=== PATIENT | female | born 1965 | race Caucasian/White ===

== ENCOUNTER 2020-10-06 05:44 | Day surgery (SDC) | payer MEDICAID ==
[2020-09-30 12:47] LABS: COVID AG,FIA SOURCE NASOPHARYNGEAL
[~2020-10-06] VITALS: Ht 162.6 cm; Wt 67.2 kg
[~2020-10-06 05:44] MED LIST: ACET-2247 PO; ASPI-1450 PO; CYCLOPENTOLATE HCL 1% 2 ML OPHTHALMIC SOLUTION ONE; EMPA10TA PO; IBUP-2070 PO; KETOROLAC TROMETHAMINE 0.5% 5 ML OPHTHALMIC SOLUTION ONE; LISI-893 PO; METH-386 PO; MOXIFLOXACIN HCL 0.5% 3 ML OPHTHALMIC SOLUTION ONE; NAPR-1193 PO; PHENYLEPHRINE HCL 2.5% 2 ML OPHTHALMIC SOLUTION ONE; RINGERS SOLUTION,LACTATED 500 ML IV ONE; TETRACAINE HCL/PF 0.5% 4 ML OPHTHALMIC SOLUTION ONE; TROPICAMIDE 1% 2 ML OPHTHALMIC SOLUTION ONE
[2020-10-06] MEDS ORDERED: POVIDONE-IODINE 10% 15 ML SOLUTION UD TP ONE (05:45)
[2020-10-06] MEDS ORDERED: BALANCED SALT 15 ML OPHTHALMIC IRRIG.SOLN OU ONE (05:45)
[2020-10-06] MEDS ORDERED: FentaNYL CITRATE PF 100 MCG/2 ML VIAL IVP ONE (05:45)
[2020-10-06] MEDS ORDERED: TETRACAINE HCL/PF 0.5% 4 ML OPHTHALMIC SOLUTION OU ONE (05:45)
[2020-10-06] MEDS ORDERED: LIDOCAINE/PF 1% 2 ML VIAL IV ONE (05:45)
[2020-10-06] MEDS ORDERED: EPINEPHrine 1:1,000 [1 MG/ML] AMP SQ ONE (05:45)
[2020-10-06] MEDS ORDERED: PrednisoLONE ACETATE 1% 5 ML OPHTHALMIC SUSPENSION OU ONE (05:45)
[2020-10-06] MEDS ORDERED: MIDAZOLAM HCL 2 MG/2 ML VIAL IVP ONE (05:45)
[2020-10-06] MEDS ORDERED: HYALURONATE SOD 8.5MG/0.85ML 10 MG/ML SYRINGE IO ONE (05:45)
[2020-10-06] MEDS: TETRACAINE HCL/PF 0.5% 4 ML OPHTHALMIC SOLUTION OD SCH ×3 (06:25→06:36)
[2020-10-06] MEDS: TROPICAMIDE 1% 2 ML OPHTHALMIC SOLUTION OD SCH ×3 (06:26→06:36)
[2020-10-06] MEDS: KETOROLAC TROMETHAMINE 0.5% 5 ML OPHTHALMIC SOLUTION OD SCH ×3 (06:26→06:37)
[2020-10-06] MEDS: CYCLOPENTOLATE HCL 1% 2 ML OPHTHALMIC SOLUTION OD SCH ×3 (06:26→06:36)
[2020-10-06] MEDS: PHENYLEPHRINE HCL 2.5% 2 ML OPHTHALMIC SOLUTION OD SCH ×3 (06:26→06:36)
[2020-10-06] MEDS: MOXIFLOXACIN HCL 0.5% 3 ML OPHTHALMIC SOLUTION OD SCH ×3 (06:27→06:37)
[2020-10-06 06:58] LABS: GLUCOMETER DEV NAME(LOC) SDS.; GLUCOSE,POINT OF CARE 136 MG/DL (70-110)
== END 2020-10-06 08:00 | disposition home or self-care (01) ==
LOC: SURGERY 05:44
PROVIDERS: ATTEND Ophthalmology
DX: E11.36 Type 2 diabetes mellitus with diabetic cataract (principal); H25.11 Age-related nuclear cataract, right eye; E66.3 Overweight; I10 Essential (primary) hypertension; G89.29 Other chronic pain; Z98.890 Other specified postprocedural states; Z88.8 Allergy status to other drugs, medicaments and biological substances; Z90.710 Acquired absence of both cervix and uterus; Z87.442 Personal history of urinary calculi; Z79.82 Long term (current) use of aspirin; Z79.899 Other long term (current) drug therapy
CPT/HCPCS: 66984; 82962; 87426; 93005; C9803; J0171; J2250; J3010; J3490; V2632

== ENCOUNTER → 2020-11-03 | Day surgery (SDC) | payer MEDICAID ==
[2020-10-28 10:41] LABS: COVID AG,FIA SOURCE NASOPHARYNGEAL
[~2020-11-03] VITALS: Ht 162.6 cm; Wt 83.6 kg
[~2020-11-03] MED LIST changes: +ALPRAZolam 0.5 MG TABLET PO ONE; +ATOR40TA28 PO; +BALANCED SALT 15 ML OPHTHALMIC IRRIG.SOLN OU ONE; +CHOL500013 PO; -EMPA10TA PO; +EMPA25TA PO; +EPINEPHrine 1:1,000 [1 MG/ML] AMP IM ONE; +FLUT16H NASAL; +FentaNYL CITRATE PF 100 MCG/2 ML VIAL IVP ONE; +HYALURONATE SOD 8.5MG/0.85ML 10 MG/ML SYRINGE IO ONE; +LETR2.5 PO; +LIDOCAINE/PF 1% 2 ML VIAL IM ONE; +MIDAZOLAM HCL 2 MG/2 ML VIAL IVP ONE; +MULT-264 PO; +NEOMYCIN/POLYMYXIN B/DEXAMETH 3.5 GM OPHTHALMIC OINTMENT OU ONE; +POVIDONE-IODINE 10% 15 ML SOLUTION UD TP ONE; +PrednisoLONE ACETATE 1% 5 ML OPHTHALMIC SUSPENSION OU ONE
[2020-11-03] MEDS: TETRACAINE HCL/PF 0.5% 4 ML OPHTHALMIC SOLUTION OS SCH ×3 (06:02→06:14)
[2020-11-03] MEDS: TROPICAMIDE 1% 2 ML OPHTHALMIC SOLUTION OS SCH ×3 (06:02→06:14)
[2020-11-03] MEDS: MOXIFLOXACIN HCL 0.5% 3 ML OPHTHALMIC SOLUTION OS SCH ×3 (06:03→06:15)
[2020-11-03] MEDS: CYCLOPENTOLATE HCL 1% 2 ML OPHTHALMIC SOLUTION OS SCH ×3 (06:03→06:15)
[2020-11-03] MEDS: PHENYLEPHRINE HCL 2.5% 2 ML OPHTHALMIC SOLUTION OS SCH ×3 (06:03→06:14)
[2020-11-03] MEDS: KETOROLAC TROMETHAMINE 0.5% 5 ML OPHTHALMIC SOLUTION OS SCH ×3 (06:03→06:15)
[2020-11-03 06:48] LABS: GLUCOMETER DEV NAME(LOC) SDS.; GLUCOSE,POINT OF CARE 140 MG/DL (70-110)
== END | disposition home or self-care (01) ==
LOC: SURGERY 05:38
PROVIDERS: ATTEND Ophthalmology
DX: H26.8 Other specified cataract (principal); H25.12 Age-related nuclear cataract, left eye; E11.36 Type 2 diabetes mellitus with diabetic cataract; E66.9 Obesity, unspecified; I10 Essential (primary) hypertension; Z98.890 Other specified postprocedural states; Z88.1 Allergy status to other antibiotic agents; Z88.8 Allergy status to other drugs, medicaments and biological substances; Z90.710 Acquired absence of both cervix and uterus; Z79.899 Other long term (current) drug therapy
CPT/HCPCS: 66984; 82962; 87426; C9803; J0171; J2250; J3010; J3490; J7120; V2632